=== PATIENT | male | born 1985 | race Hispanic/Latino ===

== ENCOUNTER 2018-05-22 03:32 | Emergency (ER) | payer SELFPAY ==
[2018-05-22] MEDS ORDERED: MECLIZINE HCL 12.5 MG TAB ONE (04:06)
[2018-05-22] MEDS ORDERED: NA CHLORIDE 0.9% 1,000 ML ONE (04:06)
[2018-05-22 04:36] LABS: Barbiturates NEGATIVE (NEGATIVE); Benzodiazepines NEGATIVE (NEGATIVE); Cocaine NEGATIVE (NEGATIVE); METHAMPHETAM POSITIVE (NEGATIVE); Methadone NEGATIVE (NEGATIVE); Opiates NEGATIVE (NEGATIVE); Phencyclidine NEGATIVE (NEGATIVE); THC Cannibis POSITIVE (NEGATIVE)
--- NOTE | 2018-05-22 05:29 | ER ---
Nurse's Notes [facility] Name: Rogerio Ocampo Age: 32 yrs Sex: Male : 1985 Arrival Date: 05/22/2018 Time: 03:34 Bed 13 Private MD: Diagnosis: Dizziness. Substance abuse Presentation: 05/22 03:50 Presenting complaint: Patient states: Patient reports he was feeling anxious and took ea hydroxypam at around 1 to 2 am , reports he was feeling dizzy and having tunnel vision. Pt reports he snorted a line of cocaine to help him feel better. Pt states "I still feel dizzy and I can't sleep". Transition of care: patient was not received from another setting of care. Onset of symptoms was May 22, 2018. Risk Assessment: Do you want to hurt yourself or someone else? Patient reports no desire to harm self or others. Initial Sepsis Screen: Does the patient meet any 2 criteria? No. Patient's initial sepsis screen is negative. Does the patient have a suspected source of infection? No. Patient's initial sepsis screen is negative. Care prior to arrival: None. 03:50 Method Of Arrival: Ambulatory ea 03:50 Acuity: MERLYN 4 ea Historical: - Allergies: 03:56 No Known Allergies; ea - Home Meds: 03:56 hydroxyzine pamoate 25 mg Oral cap [Active]; ea - PMHx: 03:57 Anxiety; Bipolar disorder; manic depression; ea - PSHx: 03:56 None; ea - Immunization history:: Adult Immunizations up to date. - Social history:: Smoking status: Patient/guardian denies using tobacco, Patient uses street drugs. - Ebola Screening: : No symptoms or risks identified at this time. Screenin:51 Abuse screen: Denies threats or abuse. Denies injuries from another. Nutritional aa1 screening: No deficits noted. Tuberculosis screening: No symptoms or risk factors identified. Fall Risk None identified. Assessment: 03:51 General: Appears in no apparent distress. comfortable, slender, Behavior is calm, aa1 cooperative, appropriate for age. Pain: Denies pain. Neuro: Level of Consciousness is awake, alert, obeys commands, Oriented to person, place, time, situation, Moves all extremities. Full function Gait is steady, Speech is normal, Reports dizziness, since snorting a line of cocaine and taking 2 Atarax tablets. Cardiovascular: Denies chest pain, diaphoresis, palpitations. Respiratory: Airway is patent Respiratory effort is even, unlabored, Respiratory pattern is regular, symmetrical. GI: No signs and/or symptoms were reported involving the gastrointestinal system. : No signs and/or symptoms were reported regarding the genitourinary system. EENT: No signs and/or symptoms were reported regarding the EENT system. Derm: Skin is intact, is healthy with good turgor, Skin is pink, warm \\T\\ dry. Musculoskeletal: Circulation, motion, and sensation intact. Capillary refill < 3 seconds. 05:36 Reassessment: Patient appears in no apparent distress at this time. Patient is alert, aa1 oriented x 3, equal unlabored respirations, skin warm/dry/pink. Discussed d/c \\T\\ f/u instructions with pt; denies questions or concerns at this time Patient states feeling better. Vital Signs: 03:50 BP 145 / 89; Pulse 87; Resp 18; Temp 97.8; Pulse Ox 99% on R/A; Weight 58.97 kg; Height ea 5 ft. 4 in. (162.56 cm); Pain 0/10; 04:43 BP 121 / 70; Pulse 58; Resp 18; Pulse Ox 98% ; ea 05:36 BP 112 / 68; Pulse 56; Resp 16; Pulse Ox 99% on R/A; Pain 0/10; aa1 03:50 Body Mass Index 22.31 (58.97 kg, 162.56 cm) ea ED Course: 03:34 Patient arrived in ED. am2 03:43 Andrew Joy MD is Attending Physician. pkl 03:50 Maggi Enriquez, ROSIBEL is Primary Nurse. aa1 03:50 Arm band placed on right wrist. Patient placed in an exam room, on a stretcher, on ea pulse oximetry. 03:51 Patient has correct armband on for positive identification. Bed in low position. Call aa1 light in reach. Pulse ox on. NIBP on. 03:53 Triage completed. ea 04:09 Inserted saline lock: 20 gauge in right antecubital area, using aseptic technique. ea 05:36 No provider procedures requiring assistance completed. IV discontinued, intact, aa1 bleeding controlled, No redness/swelling at site. Pressure dressing applied. Administered Medications: 04:08 Drug: Antivert 25 mg Route: PO; ea 05:36 Follow up: Response: No adverse reaction; Marked relief of symptoms aa1 04:09 Drug: NS 0.9% 1000 ml Route: IV; Rate: 1000 ml; Site: right antecubital; ea 05:36 Follow up: IV Status: Completed infusion aa1 Outcome: 05:29 Discharge ordered by . brandon 05:36 Discharged to home ambulatory. aa1 05:36 Condition: good 05:36 Discharge instructions given to patient, Instructed on discharge instructions, follow up and referral plans. Demonstrated understanding of instructions, follow-up care. 05:38 Patient left the ED. aa1 Signatures: Maggi Enriquez RN RN aa1 Andrew Joy MD MD pkl Moreno, Amanda am2 Antunez, Elena, RN RN joleen
--- NOTE | 2018-05-22 05:30 | EDPHYS ---
Physician Documentation [facility] Name: Rogerio Ocampo Age: 32 yrs Sex: Male : 1985 Arrival Date: 05/22/2018 Time: 03:34 Bed 13 Private MD: ED Physician Andrew Joy HPI: 05/22 03:58 This 32 yrs old Male presents to ER via Ambulatory with complaints of pkl Dizziness, Doesn't Feel Right. 03:58 The patient presents with lightheadedness. Onset: The symptoms/episode began/occurred pkl just prior to arrival. Patient admits to snorting a line of cocaine earlier.. Historical: - Allergies: 03:56 No Known Allergies; ea - Home Meds: 03:56 hydroxyzine pamoate 25 mg Oral cap [Active]; ea - PMHx: 03:57 Anxiety; Bipolar disorder; manic depression; ea - PSHx: 03:56 None; ea - Immunization history:: Adult Immunizations up to date. - Social history:: Smoking status: Patient/guardian denies using tobacco, Patient uses street drugs. - Ebola Screening: : No symptoms or risks identified at this time. ROS: 03:58 Eyes: Negative for injury, pain, redness, and discharge, ENT: Negative for injury, pkl pain, and discharge, Neck: Negative for injury, pain, and swelling, Cardiovascular: Negative for chest pain, palpitations, and edema, Respiratory: Negative for shortness of breath, cough, wheezing, and pleuritic chest pain, Abdomen/GI: Negative for abdominal pain, nausea, vomiting, diarrhea, and constipation, Back: Negative for injury and pain, : Negative for injury, bleeding, discharge, and swelling, MS/Extremity: Negative for injury and deformity, Skin: Negative for injury, rash, and discoloration. 03:58 Neuro: Positive for dizziness. Exam: 03:58 Head/Face: Normocephalic, atraumatic. Eyes: Pupils equal round and reactive to light, pkl extra-ocular motions intact. Lids and lashes normal. Conjunctiva and sclera are non-icteric and not injected. Cornea within normal limits. Periorbital areas with no swelling, redness, or edema. ENT: Nares patent. No nasal discharge, no septal abnormalities noted. Tympanic membranes are normal and external auditory canals are clear. Oropharynx with no redness, swelling, or masses, exudates, or evidence of obstruction, uvula midline. Mucous membranes moist. Neck: Trachea midline, no thyromegaly or masses palpated, and no cervical lymphadenopathy. Supple, full range of motion without nuchal rigidity, or vertebral point tenderness. No Meningismus. Chest/axilla: Normal chest wall appearance and motion. Nontender with no deformity. No lesions are appreciated. Cardiovascular: Regular rate and rhythm with a normal S1 and S2. No gallops, murmurs, or rubs. Normal PMI, no JVD. No pulse deficits. Respiratory: Lungs have equal breath sounds bilaterally, clear to auscultation and percussion. No rales, rhonchi or wheezes noted. No increased work of breathing, no retractions or nasal flaring. Abdomen/GI: Soft, non-tender, with normal bowel sounds. No distension or tympany. No guarding or rebound. No evidence of tenderness throughout. Back: No spinal tenderness. No costovertebral tenderness. Full range of motion. Skin: Warm, dry with normal turgor. Normal color with no rashes, no lesions, and no evidence of cellulitis. MS/ Extremity: Pulses equal, no cyanosis. Neurovascular intact. Full, normal range of motion. Neuro: Awake and alert, GCS 15, oriented to person, place, time, and situation. Cranial nerves II-XII grossly intact. Motor strength 5/5 in all extremities. Sensory grossly intact. Cerebellar exam normal. Normal gait. Vital Signs: 03:50 BP 145 / 89; Pulse 87; Resp 18; Temp 97.8; Pulse Ox 99% on R/A; Weight 58.97 kg; Height ea 5 ft. 4 in. (162.56 cm); Pain 0/10; 04:43 BP 121 / 70; Pulse 58; Resp 18; Pulse Ox 98% ; ea 05:36 BP 112 / 68; Pulse 56; Resp 16; Pulse Ox 99% on R/A; Pain 0/10; aa1 03:50 Body Mass Index 22.31 (58.97 kg, 162.56 cm) ea MDM: 03:43 Patient medically screened. pkl 05:28 Data reviewed: vital signs, nurses notes, lab test result(s). pkl 05/22 03:58 Order name: UDS pkl 05/22 03:58 Order name: Urine Drug Screen; Complete Time: 04:59 EDMS Administered Medications: 04:08 Drug: Antivert 25 mg Route: PO; ea 05:36 Follow up: Response: No adverse reaction; Marked relief of symptoms aa1 04:09 Drug: NS 0.9% 1000 ml Route: IV; Rate: 1000 ml; Site: right antecubital; ea 05:36 Follow up: IV Status: Completed infusion aa1 Disposition: 05/22/18 05:29 Discharged to Home. Impression: Dizziness. Substance abuse. - Condition is Stable. - Medication Reconciliation Form, Thank You Letter, Antibiotic Education, Prescription Opioid Use form. - Follow up: Private Physician; When: 1 - 2 days; Reason: Re-evaluation by your physician. - Problem is new. - Symptoms have improved. Signatures: Dispatcher [employer] EDMaggi Stanley RN RN aa1 Andrew Joy MD MD pkAlessandra Dominguez RN RN ea Corrections: (The following items were deleted from the chart) 05:38 05:29 05/22/2018 05:29 Discharged to Home. Impression: Dizziness. Substance abuse. aa1 Condition is Stable. Forms are Medication Reconciliation Form, Thank You Letter, Antibiotic Education, Prescription Opioid Use. Follow up: Private Physician; When: 1 - 2 days; Reason: Re-evaluation by your physician. Problem is new. Symptoms have improved. pkl
== END 2018-05-22 05:38 | disposition home or self-care (01) ==
LOC: ER 03:32
DX: R42 Dizziness and giddiness (principal); F14.10 Cocaine abuse, uncomplicated
CPT/HCPCS: 80307; 96360; 99283; J7030

== ENCOUNTER 2020-03-23 20:14 | Emergency (ER) | payer SELFPAY ==
--- OUTSIDE RECORDS SUMMARY | 2020-03-23 20:16 | XMS REPORT | Continuity of Care Document ---
:1985 Author Organization [facility] t Address [address] [place] [address] Care Team Providers Name Role Phone Unavailable Unavailable Unavailable Problems This patient has no known problems. Allergies, Adverse Reactions, Alerts This patient has no known allergies or adverse reactions. Medications This patient has no known medications. Procedures This patient has no known procedures. Results Test Description Test Time Test Comments Results Result Comments Source Valproic Acid Level 2019-04-14 08:27:31 Test Item Value Reference Range Interpretation Comme nts Valproic Acid Level (test code = Valproic Acid Level) 104.1 ug/m L(g) 50.0-100.0 H Valproic Acid [id number] 07:43:14 Test Item Value Reference Range Interpretation Comments Valproic Acid Level (test code 73.6 ug/mL(g) 50.0-100.0 = Valproic Acid Level) RPR [id number] 06:32:32 Test Item Value Reference Range Interpretation Comments RPR Qual (test code = RPR Qual) Non-Reactive Non-Reactive Reactive Control (test code = Reactive Reactive Control) Weak Reactive Control (test Weak Reactive code = Weak Reactive Control) Non-Reactive Control (test code Non-Reactive = Non-Reactive Control) Lot # (test code = Lot #) [id number] N Expiration Dt (test code = 08/16/2020 N Expiration Dt) Lipid [id number] 03:06:13 Test Item Value Reference Range Interpretation Comments Cholesterol Total 179 mg/dL 0-200 RISK OF HE ART (test code = DISEASEPublishe d by Cholesterol Total) [place] [employer] [place]nn lyte Optimal Borderl ine Increased RiskC HOL <200 200-239 >2 40TRIG <150 150-199 >2 00HDL Male >60 <40H DL Female >60 <5 0LDL <100 130-159 >1 60LDL Near optimal is 100-129 Triglycerides (test 95 mg/dL 9-200 code = Triglycerides) HDL (test code = HDL) 50 mg/dL 40-60 LDL (test code = LDL) 110 mg/dL 0-130 The eq uation being used in this calcula tion is LDL = (Chol - H DL) - (Trig / 5) VLDL (test code = 19 mg/dL 5-40 The equati on being used VLDL) in this calcula tion is VLDL = Trig / 5 Chol/HDL (test code = 3.6 ratio 0.0-5.0 Chol/HDL) LDL/HDL Ratio (test 2 N The equa tion being used code = LDL/HDL Ratio) in thi s calculation is LDL/HDL Ratio=L DL Calc/HDL Chol Thyroid Stimulating [id number] 03:06:13 Test Item Value Reference Range Interpretation Comments TSH (test code = TSH) 1.270 mIU/mL 0.270-4.200 Drugs of Abuse Urine [id number] 17:55:32 Test Item Value Reference Range Interpretation Comments Amphetamine Screen Ur POSITIVE Negative A For di agnostic (test code = Amphetamine pur poses only. Screen Ur) Positive result s should always b e assessed in conjunction wit h a patient's medic al history. Barbiturate Screen Ur Negative Negative (test code = Barbiturate Screen Ur) Benzodiazepines Ur (test Negative Negative code = Benzodiazepines Ur) Cocaine Screen Ur (test POSITIVE Negative A code = Cocaine Screen Ur) U Methadone (test code = Negative Negative U Methadone) Opiate Screen Ur (test Negative Negative code = Opiate Screen Ur) U PCP Scrn (test code = U Negative Negative PCP Scrn) U Propoxyphene (test code Negative Negative = U Propoxyphene) Cannabinoid Screen Ur POSITIVE Negative A (test code = Cannabinoid Screen Ur) Comprehensive Metabolic [id number] 17:55:22 Test Item Value Reference Range Interpretation Comments Sodium Level (test code = Sodium 138.0 mmol/L 135.0-145.0 Level) Potassium Level (test code = 4.2 mmol/L 3.5-5.1 Potassium Level) Chloride Level (test code = 99 mmol/L 98-105 Chloride Level) CO2 (test code = CO2) 27 mmol/L 22-29 Anion Gap (test code = Anion 12 mmol/L 7-16 Gap) BUN (test code = BUN) 9.50 mg/dL 6.00-20.00 Creatinine Level (test code = 0.90 mg/dL 0.70-1.20 Creatinine Level) BUN/Creat Ratio (test code = 11 N BUN/Creat Ratio) Glucose Level (test code = 91 mg/dL 70-115 Glucose Level) Calcium Level (test code = 9.3 mg/dL 8.3-10.5 Calcium Level) Alk Phos (test code = Alk Phos) 112 U/L 40-129 Bilirubin Total (test code = 0.6 mg/dL 0.1-0.9 Bilirubin Total) Albumin Level (test code = 4.9 g/dL 3.5-5.2 Albumin Level) Protein Total (test code = 7.4 g/dL 6.4-8.3 Protein Total) ALT (test code = ALT) 15 U/L 1-41 AST (test code = AST) 26 U/L 1-40 Globulin (test code = Globulin) 2.5 g/dL 2.9-3.1 L A/G Ratio (test code = A/G 2.0 ratio N Ratio) Comprehensive Metabolic [id number] 17:55:22 Test Item Value Reference Range Interpretation Comments Sodium Level (test 138.0 mmol/L 135.0-145.0 code = Sodium Level) Potassium Level 4.2 mmol/L 3.5-5.1 (test code = Potassium Level) Chloride Level (test 99 mmol/L 98-105 code = Chloride Level) CO2 (test code = 27 mmol/L 22-29 CO2) Anion Gap (test code 12 mmol/L 7-16 = Anion Gap) BUN (test code = 9.50 mg/dL 6.00-20.00 BUN) Creatinine Level 0.90 mg/dL 0.70-1.20 (test code = Creatinine Level) BUN/Creat Ratio 11 N (test code = BUN/Creat Ratio) Glucose Level (test 91 mg/dL 70-115 code = Glucose Level) Calcium Level (test 9.3 mg/dL 8.3-10.5 code = Calcium Level) Alk Phos (test code 112 U/L 40-129 = Alk Phos) Bilirubin Total 0.6 mg/dL 0.1-0.9 (test code = Bilirubin Total) Albumin Level (test 4.9 g/dL 3.5-5.2 code = Albumin Level) Protein Total (test 7.4 g/dL 6.4-8.3 code = Protein Total) ALT (test code = 15 U/L 1-41 ALT) AST (test code = 26 U/L 1-40 AST) Globulin (test code 2.5 g/dL 2.9-3.1 L = Globulin) A/G Ratio (test code 2.0 ratio N = A/G Ratio) eGFR AA (test code = >60 N eGFR (e stimated eGFR AA) mL/min/1.73 m2 Glomerular Filtration Rate ) is an estimated va lue, calculated from the patient's serum creatinine usin g the MDRD equation. It is NOT the patient 's actual GFR. The eGFR provides a more clinically usef ul measure of kidn ey disease than se rum creatinine alone.This calculation bruce es sex and race in to account, if the information is provided. If th e race is not provided, and t he patient is -Zofia n, multiply by 1.2 12. If sex is not provided, and t he patient is fema le, multiply by 0.7 42. Results for pat ients <18 years of ag e have not been validated by th e MDRD study and should be interpreted wit h caution. eGFR R esult Interpretation: eGFR > or = 60 is in the Normal RangeeGF R < 60 may mean kid carlos diseaseeGFR < 1 5 may mean kidney failure Rang es recommended by the National Kidney Foundation, http://nkdep.ni h.gov Alcohol [id number] 17:55:22 Test Item Value Reference Range Interpretation Comments Ethanol Level (test <0.00 g/dL 0.00-0.01 Intoxica isa 0.080 g/dL code = Ethanol or more Level) Ethanol Inst (test <0 N code = Ethanol Inst) Comprehensive Metabolic [id number] 17:55:22 Test Item Value Reference Range Interpretation Comments Sodium Level (test 138.0 mmol/L 135.0-145.0 code = Sodium Level) Potassium Level 4.2 mmol/L 3.5-5.1 (test code = Potassium Level) Chloride Level (test 99 mmol/L 98-105 code = Chloride Level) CO2 (test code = 27 mmol/L 22-29 CO2) Anion Gap (test code 12 mmol/L 7-16 = Anion Gap) BUN (test code = 9.50 mg/dL 6.00-20.00 BUN) Creatinine Level 0.90 mg/dL 0.70-1.20 (test code = Creatinine Level) BUN/Creat Ratio 11 N (test code = BUN/Creat Ratio) Glucose Level (test 91 mg/dL 70-115 code = Glucose Level) Calcium Level (test 9.3 mg/dL 8.3-10.5 code = Calcium Level) Alk Phos (test code 112 U/L 40-129 = Alk Phos) Bilirubin Total 0.6 mg/dL 0.1-0.9 (test code = Bilirubin Total) Albumin Level (test 4.9 g/dL 3.5-5.2 code = Albumin Level) Protein Total (test 7.4 g/dL 6.4-8.3 code = Protein Total) ALT (test code = 15 U/L 1-41 ALT) AST (test code = 26 U/L 1-40 AST) Globulin (test code 2.5 g/dL 2.9-3.1 L = Globulin) A/G Ratio (test code 2.0 ratio N = A/G Ratio) eGFR AA (test code = >60 N eGFR (e stimated eGFR AA) mL/min/1.73 m2 Glomerular Filtration Rate ) is an estimated va lue, calculated from the patient's serum creatinine usin g the MDRD equation. It is NOT the patient 's actual GFR. The eGFR provides a more clinically usef ul measure of kidn ey disease than se rum creatinine alone.This calculation bruce es sex and race in to account, if the information is provided. If th e race is not provided, and t he patient is -Zofia n, multiply by 1.2 12. If sex is not provided, and t he patient is fema le, multiply by 0.7 42. Results for pat ients <18 years of ag e have not been validated by th e MDRD study and should be interpreted wit h caution. eGFR R esult Interpretation: eGFR > or = 60 is in the Normal RangeeGF R < 60 may mean kid carlos diseaseeGFR < 1 5 may mean kidney failure Rang es recommended by the National Kidney Foundation, http://nkdep.ni h.gov eGFR Non-AA (test >60.00 N eGFR (zahira mated code = eGFR Non-AA) mL/min/1.73 m2 Glomer ular Filtration Rate ) is an estimated va lue, calculated from the patient's serum creatinine usin g the MDRD equation. It is NOT the patient 's actual GFR. The eGFR provides a more clinically usef ul measure of kidn ey disease than se rum creatinine alone.This calculation bruce es sex and race in to account, if the information is provided. If th e race is not provided, and t he patient is -Zofia n, multiply by 1.2 12. If sex is not provided, and t he patient is fema le, multiply by 0.7 42. Results for pat ients <18 years of ag e have not been validated by th e MDRD study and should be interpreted wit h caution. eGFR R esult Interpretation: eGFR > or = 60 is in the Normal RangeeGF R < 60 may mean kid carlos diseaseeGFR < 1 5 may mean kidney failure Rang es recommended by the National Kidney Foundation, http://nkdep.ni h.gov IG [id number] 17:36:05 Test Item Value Reference Range Interpretation Comments IG (test code = IG) 0.3 % 0.0-5.0 IG Abs (test code = IG Abs) 0 x10 N Complete Blood Count with [id number] 17:36:04 Test Item Value Reference Range Interpretation Comments WBC (test code = WBC) 9.1 x10 4.4-10.5 RBC (test code = RBC) 4.95 x10 4.10-5.70 Hgb (test code = Hgb) 14.8 g/dL 13.4-17.4 Hct (test code = Hct) 44.4 % 38.7-52.0 MCV (test code = MCV) 89.70 fL 80.00-100.00 MCHC (test code = 33.30 g/dL 32.00-37.50 MCHC) RDW CV (test code = 12.8 % 11.5-14.5 RDW CV) MCH (test code = MCH) 29.9 pg 27.0-32.5 Platelets (test code = 395.0 x10 140.0-440.0 Platelets) MPV (test code = MPV) 8.6 fL N Slide Review (test Auto Auto Result cr eated by code = Slide Review) GL_SJM_ SLIDE_REV_AUTO nRBC (test code = 0 N nRBC) NRBC Abs (test code = 0.00 x10 N NRBC Abs) IPF (test code = IPF) 0 % N Automated [id number] 17:36:04 Test Item Value Reference Range Interpretation Comments Neutro Auto (test code = Neutro 67.6 % 36.0-70.0 Auto) Lymph Auto (test code = Lymph Auto) 18.7 % 12.0-44.0 Adams Auto (test code = Adams Auto) 6.1 % 0.0-11.0 Eos, Auto (test code = Eos, Auto) 6.5 % 0.0-7.0 Basophil Auto (test code = Basophil 0.8 % 0.0-2.0 Auto) Neutro Absolute (test code = Neutro 6.2 x10 1.6-7.4 Absolute) Lymph Absolute (test code = Lymph 1.70 x10 .50-4.60 Absolute) Adams Absolute (test code = Adams .56 x10 .00-1.20 Absolute) Eos Absolute (test code = Eos 0.59 x10 0.00-0.74 Absolute) Baso Absolute (test code = Baso 0.07 x10 0.00-0.21 Absolute)
[2020-03-23 20:58] LABS: Absolute Lymphocytes (CBC) 1.7 K/uL (0.7-4.9); Basophils % 1.5 % (0-1.3); Lymphocytes % 28.2 % (15.3-44.8); MPV 7.1 fL (7.6-11.3); RBC Red Blood Cell Count 5.56 M/uL (4.33-5.43)
--- NOTE | 2020-03-23 20:59 | RAD REPORT ---
EXAM DESCRIPTION: RAD - Chest Single View - 03/23/2020 8:45 pm CLINICAL HISTORY: CHEST PAIN Chest pain. COMPARISON: No comparisons FINDINGS: Portable technique limits examination quality. The lungs are grossly clear. The heart is normal in size. No displaced fractures. IMPRESSION: No acute intrathoracic process suspected.
[2020-03-23 21:02] LABS: Protime INR 1.05
[2020-03-23 21:10] LABS: Barbiturates NEGATIVE (NEGATIVE); Benzodiazepines NEGATIVE (NEGATIVE); Cocaine NEGATIVE (NEGATIVE); METHAMPHETAM NEGATIVE (NEGATIVE); Methadone NEGATIVE (NEGATIVE); Opiates NEGATIVE (NEGATIVE); Phencyclidine NEGATIVE (NEGATIVE); THC Cannibis NEGATIVE (NEGATIVE)
[2020-03-23 21:19] LABS: ALT/SGPT 15 U/L (12-78); AST/SGOT 12 U/L (15-37); Albumin 4.3 g/dL (3.4-5.0); Alkaline Phosphatase 122 U/L (45-117); BUN Blood Urea Nitrogen 10 mg/dL (7-18); Bicarbonate 27 mmol/L (21-32); Bilirubin Direct < 0.1 mg/dL (0-0.2); Bilirubin Total 0.4 mg/dL (0.2-1.0); Glucose Level 100 mg/dL (74-106); NT PRO-BNP 10 pg/mL (<125); Potassium 3.8 mmol/L (3.5-5.1); Protein, Total 8.8 g/dL (6.4-8.2); Sodium Level 138 mmol/L (136-145); Troponin (Emerg Dept Use Only) < 0.02 ng/mL (0.0-0.045)
[2020-03-23 22:06] LABS: Urine Blood TRACE (NEG); Urine Glucose NEGATIVE (NEG); Urine Protein NEGATIVE (NEG); Urine Specific Gravity 1.015 (1.005-1.030); Urine pH 7.5 (5.0-7.0)
[2020-03-23] MEDS ORDERED: KETOROLAC 30 MG/ML INJ ONE (22:23)
--- NOTE | 2020-03-24 07:45 | EKG ---
Test Date: 2020-03-23 Test Time: 20:30:59 Fixed Wing Aircraft Flight Mechanic: FRANTZ MEASUREMENT RESULTS: Intervals: Rate: 61 [place]: 128 QRSD: 100 QT: 368 QTc: 370 [place]: P: 90 [place]: 128 QRS: 76 T: 59 INTERPRETIVE STATEMENTS: Normal sinus rhythm Nonspecific T wave abnormality Abnormal ECG Compared to ECG 05/19/2015 13:48:41 T-wave abnormality now present Sinus tachycardia no longer present Electronically Signed On 03-24-20 07:44:34 CDT by Chris Perez
[2020-03-24] MEDS ORDERED: ACETAMINOPHEN 325 MG TABLET ONE (15:21)
--- NOTE | 2020-03-25 11:44 | EKG ---
Test Date: 2020-03-25 Test Time: 00:57:56 Sand Plant Attendant: KLARISSA MEASUREMENT RESULTS: Intervals: Rate: 59 [place]: 128 QRSD: 98 QT: 402 QTc: 397 [place]: P: 37 [place]: 128 QRS: 83 T: 64 INTERPRETIVE STATEMENTS: Sinus bradycardia Otherwise normal ECG Compared to ECG 03/23/2020 20:30:59 Sinus rhythm no longer present T-wave abnormality no longer present Electronically Signed On 03-25-20 11:43:09 CDT by Chris Perez
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
[2020-03-25 13:11] VITALS: BP 128/91; TEMP 98.1; O2SAT 100
== END 2020-03-25 12:42 ==
LOC: ER 20:14
DX: R45.851 Suicidal ideations (principal); F33.9 Major depressive disorder, recurrent, unspecified; F17.210 Nicotine dependence, cigarettes, uncomplicated
CPT/HCPCS: 36415; 71045; 80048; 80076; 80307; 80320; 80329; 81003; 83735; 83880; 84484; 85025; 85610; 93005; 96374; 99285

== ENCOUNTER 2020-05-01 13:13 | Emergency (ER) | payer SELFPAY ==
[2020-05-01] MEDS ORDERED: DIAZEPAM 2 MG TABLET ONE (13:43)
[2020-05-01] MEDS ORDERED: KETOROLAC 30 MG/ML INJ ONE (13:44)
--- OUTSIDE RECORDS SUMMARY | 2020-05-01 14:06 | XMS REPORT | Continuity of Care Document ---
:1985 Author Organization [facility] t Address [address] [place] [address] Care Team Providers Name Role Phone Unavailable [...] 104.1 ug/m L(g) 50.0-100.0 H Valproic Acid [id number] 07:43:14 Test Item Value Reference Range Interpretation Comments Valproic Acid Level (test code 73.6 ug/mL(g) 50.0-100.0 = Valproic Acid Level) RPR [id number] 06:32:32 Test Item Value Reference Range Interpretation Comments RPR Qual (test code = RPR Qual) Non-Reactive Non-Reactive Reactive Control (test code = Reactive Reactive Control) Weak Reactive Control (test Weak Reactive code = Weak Reactive Control) Non-Reactive Control (test code Non-Reactive = Non-Reactive Control) Lot # (test code = Lot #) [id number] N Expiration Dt (test code = 08/16/2020 N Expiration Dt) Lipid [id number] 03:06:13 Test Item Value Reference Range Interpretation Comments Cholesterol Total 179 mg/dL 0-200 RISK OF HE ART (test code = DISEASEPublishe d by Cholesterol Total) [place] [employer] [place] lyte Optimal Borderl ine Increased RiskC HOL [...] LDL/HDL Ratio=L DL Calc/HDL Chol Thyroid Stimulating [id number] 03:06:13 Test Item Value Reference Range Interpretation Comments TSH (test code = TSH) 1.270 mIU/mL 0.270-4.200 Drugs of Abuse Urine [id number] 17:55:32 Test Item Value Reference Range Interpretation [...] code = Cannabinoid Screen Ur) Comprehensive Metabolic [id number] 17:55:22 Test Item Value Reference Range Interpretation [...] A/G 2.0 ratio N Ratio) Comprehensive Metabolic [id number] 17:55:22 Test Item Value Reference Range Interpretation [...] the National Kidney Foundation, http://nkdep.ni h.gov Alcohol [id number] 17:55:22 Test Item Value Reference Range Interpretation Comments Ethanol Level (test <0.00 g/dL 0.00-0.01 Intoxica isa 0.080 g/dL code = Ethanol or more Level) Ethanol Inst (test <0 N code = Ethanol Inst) Comprehensive Metabolic [id number] 17:55:22 Test Item Value Reference Range Interpretation [...] the National Kidney Foundation, http://nkdep.ni h.gov IG [id number] 17:36:05 Test Item Value Reference Range Interpretation Comments IG (test code = IG) 0.3 % 0.0-5.0 IG Abs (test code = IG Abs) 0 x10 N Complete Blood Count with [id number] 17:36:04 Test Item Value Reference Range Interpretation [...] code = IPF) 0 % N Automated [id number] 17:36:04 Test Item Value Reference Range Interpretation Comments Neutro Auto (test code = Neutro 67.6 % 36.0-70.0 Auto) Lymph Auto (test code = Lymph Auto) 18.7 % 12.0-44.0 Furnas Auto (test code = Furnas Auto) 6.1 % 0.0-11.0 Eos, Auto (test code = Eos, Auto) 6.5 % 0.0-7.0 Basophil Auto (test code = Basophil 0.8 % 0.0-2.0 Auto) Neutro Absolute (test code = Neutro 6.2 x10 1.6-7.4 Absolute) Lymph Absolute (test code = Lymph 1.70 x10 .50-4.60 Absolute) Furnas Absolute (test code = Furnas .56 x10 .00-1.20 Absolute) Eos Absolute (test code = Eos 0.59 x10 0.00-0.74 Absolute) Baso Absolute (test code = Baso 0.07 x10 0.00-0.21 Absolute)
--- NOTE | 2020-05-01 15:06 | RAD REPORT ---
[facility] DES[facility] 2:36 pm CLINICAL HISTORY: Chest pain COMPARISON: March 2020 FINDINGS: Left lateral costophrenic sulcus is not included in the field of view and is not evaluated Lungs are hyperaerated The lungs appear clear of acute infiltrate. The heart is normal size IMPRESSION: No acute abnormalities displayed
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
[2020-05-01 17:17] VITALS: O2SAT 100
[2020-05-01 17:19] VITALS: BP 131/82; TEMP 99
== END 2020-05-01 15:22 | disposition home or self-care (01) ==
LOC: ER 13:13
DX: R09.1 Pleurisy (principal)
CPT/HCPCS: 71045; 96372; 99284

== ENCOUNTER 2020-05-05 01:18 | Emergency (ER) | payer SELFPAY ==
--- OUTSIDE RECORDS SUMMARY | 2020-05-05 01:21 | XMS REPORT | Continuity of Care Document ---
:1985 Author Organization [facility] t Address [address] [place] [address] Care Team Providers Name Role Phone Unavailable [...] 104.1 ug/m L(g) 50.0-100.0 H Valproic Acid [id number] 07:43:14 Test Item Value Reference Range Interpretation Comments Valproic Acid Level (test code 73.6 ug/mL(g) 50.0-100.0 = Valproic Acid Level) RPR [id number] 06:32:32 Test Item Value Reference Range Interpretation Comments RPR Qual (test code = RPR Qual) Non-Reactive Non-Reactive Reactive Control (test code = Reactive Reactive Control) Weak Reactive Control (test Weak Reactive code = Weak Reactive Control) Non-Reactive Control (test code Non-Reactive = Non-Reactive Control) Lot # (test code = Lot #) [id number] N Expiration Dt (test code = 08/16/2020 N Expiration Dt) Lipid [id number] 03:06:13 Test Item Value Reference Range Interpretation Comments Cholesterol Total 179 mg/dL 0-200 RISK OF HE ART (test code = DISEASEPublishe d by Cholesterol Total) [place] [employer] Brooklynn lyte Optimal Borderl ine [...] LDL/HDL Ratio=L DL Calc/HDL Chol Thyroid Stimulating [id number] 03:06:13 Test Item Value Reference Range Interpretation Comments TSH (test code = TSH) 1.270 mIU/mL 0.270-4.200 Drugs of Abuse Urine [id number] 17:55:32 Test Item Value Reference Range Interpretation [...] code = Cannabinoid Screen Ur) Comprehensive Metabolic [id number] 17:55:22 Test Item Value Reference Range Interpretation [...] A/G 2.0 ratio N Ratio) Comprehensive Metabolic [id number] 17:55:22 Test Item Value Reference Range Interpretation [...] the National Kidney Foundation, http://nkdep.ni h.gov Alcohol [id number] 17:55:22 Test Item Value Reference Range Interpretation Comments Ethanol Level (test <0.00 g/dL 0.00-0.01 Intoxica isa 0.080 g/dL code = Ethanol or more Level) Ethanol Inst (test <0 N code = Ethanol Inst) Comprehensive Metabolic [id number] 17:55:22 Test Item Value Reference Range Interpretation [...] the National Kidney Foundation, http://nkdep.ni h.gov IG [id number] 17:36:05 Test Item Value Reference Range Interpretation Comments IG (test code = IG) 0.3 % 0.0-5.0 IG Abs (test code = IG Abs) 0 x10 N Complete Blood Count with [id number] 17:36:04 Test Item Value Reference Range Interpretation [...] code = IPF) 0 % N Automated [id number] 17:36:04 Test Item Value Reference Range Interpretation Comments Neutro Auto (test code = Neutro 67.6 % 36.0-70.0 Auto) Lymph Auto (test code = Lymph Auto) 18.7 % 12.0-44.0 [place] Auto (test code = [place] Auto) 6.1 % 0.0-11.0 Eos, Auto (test code = Eos, Auto) 6.5 % 0.0-7.0 Basophil Auto (test code = Basophil 0.8 % 0.0-2.0 Auto) Neutro Absolute (test code = Neutro 6.2 x10 1.6-7.4 Absolute) Lymph Absolute (test code = Lymph 1.70 x10 .50-4.60 Absolute) [place] Absolute (test code = [place] .56 x10 .00-1.20 Absolute) Eos Absolute (test code = Eos 0.59 x10 0.00-0.74 Absolute) Baso Absolute (test code = Baso 0.07 x10 0.00-0.21 Absolute)
[2020-05-05 02:16] LABS: Absolute Lymphocytes (CBC) 2.3 K/uL (0.7-4.9); Hematocrit 37.4 % (39.6-49.0); Lymphocytes % 32.5 % (15.3-44.8); MPV 7.3 fL (7.6-11.3); Protime INR 1.03; RBC Red Blood Cell Count 4.39 M/uL (4.33-5.43)
[2020-05-05 02:27] LABS: ALT/SGPT 23 U/L (12-78); AST/SGOT 18 U/L (15-37); Albumin 3.7 g/dL (3.4-5.0); Alkaline Phosphatase 103 U/L (45-117); BUN Blood Urea Nitrogen 20 mg/dL (7-18); Bicarbonate 27 mmol/L (21-32); Bilirubin Direct 0.1 mg/dL (0-0.2); Bilirubin Total 0.3 mg/dL (0.2-1.0); Glucose Level 100 mg/dL (74-106); Magnesium 2.4 mg/dL (1.8-2.4); NT PRO-BNP 39 pg/mL (<125); Potassium 3.8 mmol/L (3.5-5.1); Protein, Total 7.3 g/dL (6.4-8.2); Sodium Level 144 mmol/L (136-145); Troponin (Emerg Dept Use Only) < 0.02 ng/mL (0.0-0.045)
[2020-05-05 02:52] LABS: Blood Morphology Comment NOT SEEN (NOT SEEN); Platelet Estimate ADEQ
[2020-05-05] MEDS ORDERED: KETOROLAC 30 MG/ML INJ ONE (03:35)
[2020-05-05 04:34] LABS: Barbiturates NEGATIVE (NEGATIVE); Benzodiazepines NEGATIVE (NEGATIVE); Cocaine NEGATIVE (NEGATIVE); METHAMPHETAM POSITIVE (NEGATIVE); Methadone NEGATIVE (NEGATIVE); Opiates NEGATIVE (NEGATIVE); Phencyclidine NEGATIVE (NEGATIVE); THC Cannibis NEGATIVE (NEGATIVE)
[2020-05-05 05:18] LABS: Creatine Phosphokinase 309 U/L (39-308)
--- NOTE | 2020-05-05 05:32 | EDPHYS ---
Physician Documentation [facility] Name: Rogerio Ocampo Age: 34 yrs Sex: Male : 1985 Arrival Date: 05/05/2020 Time: : Bed 8 Private MD: ED Physician Calin Harris HPI: 05/05 01:38 This 34 yrs old Male presents to ER via EMS with complaints of Chest pain.. mh7 01:38 The patient or guardian reports chest pain that is located primarily in the anterior mh7 chest wall, left. The pain does not radiate. Associated signs and symptoms: Pertinent positives: shortness of breath, Anxiety, Pertinent negatives: abdominal pain, cough, diaphoresis, dizziness, headache, lower extremity pain, lower extremity swelling, lightheadedness, nausea, near syncope, palpitations, recent travel, syncope, vomiting. The chest pain is described as sharp. Duration: The patient or guardian reports a single episode, that is still ongoing, but improving. Modifying factors: The symptoms are alleviated by nothing. the symptoms are aggravated by movement, palpation of area. Severity of pain: At its worst the pain was moderate today, in the emergency department the pain has improved markedly. The patient has experienced similar episodes in the past, multiple times. Historical: - Allergies: :23 No Known Allergies; - Home Meds: :23 None [Active]; - PMHx: :23 Anxiety; Bipolar disorder; MANIC DEPRESSION; - Immunization history:: Adult Immunizations not up to date. - Social history:: Smoking status: Patient/guardian denies using. ROS: 01:38 Constitutional: Negative for fever, chills, and weight loss, Eyes: Negative for injury, mh7 pain, redness, and discharge, ENT: Negative for injury, pain, and discharge, Neck: Negative for injury, pain, and swelling, Abdomen/GI: Negative for abdominal pain, nausea, vomiting, diarrhea, and constipation, Back: Negative for injury and pain, : Negative for injury, bleeding, discharge, and swelling, MS/Extremity: Negative for injury and deformity, Skin: Negative for injury, rash, and discoloration, Neuro: Negative for headache, weakness, numbness, tingling, and seizure, Psych: Negative for depression, anxiety, suicide ideation, homicidal ideation, and hallucinations, Allergy/Immunology: Negative for hives, rash, and allergies, Endocrine: Negative for neck swelling, polydipsia, polyuria, polyphagia, and marked weight changes, Hematologic/Lymphatic: Negative for swollen nodes, abnormal bleeding, and unusual bruising. Exam: 01:38 Constitutional: This is a well developed, well nourished patient who is awake, alert, mh7 and in no acute distress. Head/Face: Normocephalic, atraumatic. Neck: Trachea midline, no thyromegaly or masses palpated, and no cervical lymphadenopathy. Supple, full range of motion without nuchal rigidity, or vertebral point tenderness. No Meningismus. 01:38 Cardiovascular: Regular rate and rhythm with a normal S1 and S2. No gallops, murmurs, or rubs. Normal PMI, no JVD. No pulse deficits. Respiratory: Lungs have equal breath sounds bilaterally, clear to auscultation and percussion. No rales, rhonchi or wheezes noted. No increased work of breathing, no retractions or nasal flaring. Abdomen/GI: Soft, non-tender, with normal bowel sounds. No distension or tympany. No guarding or rebound. No evidence of tenderness throughout. Back: No spinal tenderness. No costovertebral tenderness. Full range of motion. Skin: Warm, dry with normal turgor. Normal color with no rashes, no lesions, and no evidence of cellulitis. MS/ Extremity: Pulses equal, no cyanosis. Neurovascular intact. Full, normal range of motion. Neuro: Awake and alert, GCS 15, oriented to person, place, time, and situation. Cranial nerves II-XII grossly intact. Motor strength 5/5 in all extremities. Sensory grossly intact. Cerebellar exam normal. Normal gait. Psych: Awake, alert, with orientation to person, place and time. Behavior, mood, and affect are within normal limits. 01:38 Chest/axilla: Inspection: healed left surgical scar, Palpation: tenderness, that is moderate, that totally reproduces the patient's complaints, Axilla: are normal, Lymph nodes: lymphadenopathy is not appreciated. 03:51 ECG was reviewed by the Attending Physician. [facility] Vital Signs: 01:21 BP 128 / 89; Pulse 83; Resp 18; Temp 98.2; Pulse Ox 100% ; Weight 57.61 kg; Height 5 wh ft. 4 in. (162.56 cm); Pain 7/10; 03:12 BP 125 / 88; Pulse 53; Resp 16; Pulse Ox 100% on R/A; rv 05:00 BP 117 / 77; Pulse 60; Resp 16; Pulse Ox 100% on R/A; rv 06:07 BP 126 / 77; Pulse 53; Resp 15; Pulse Ox 100% on R/A; rv 01:21 Body Mass Index 21.80 (57.61 kg, 162.56 cm) MDM: 01:24 Patient medically screened. [facility] 05:29 Differential diagnosis: acute myocardial infarction, acute pericarditis, anxiety, mh7 coronary artery disease chest wall pain, costochondritis, pericarditis, pneumonia, pneumothorax. HEART Score: History: Slightly Suspicious (0), ECG: Normal (0), Age: < or = 45 years (0), Risk Factors: No Risk Factors Known (0), Troponin: < or = 1 x Normal Limit (0), Total Score = 0. Data reviewed: vital signs, nurses notes, EMS record, old medical records, lab test result(s), cardiac enzymes, CBC, electrolytes, urine drug screen, EKG, radiologic studies, plain films. Data interpreted: Pulse oximetry: on room air is 100 %. Interpretation: normal. Counseling: I had a detailed discussion with the patient and/or guardian regarding: the historical points, exam findings, and any diagnostic results supporting the discharge/admit diagnosis, lab results, radiology results, the need for outpatient follow up, to return to the emergency department if symptoms worsen or persist or if there are any questions or concerns that arise at home. Response to treatment: the patient's symptoms have resolved after treatment, the patient's blood pressure is in an acceptable range, mental status has returned to baseline, the patient no longer shows bradycardia, the patient is not short of breath, the patient is not tachycardic, the patient's pain is gone, the patient's temperature has normalized. 05/05 01: Order name: Basic Metabolic Panel; Complete Time: 05/05 01: Order name: CBC with Diff; Complete Time: 03:06 wh 05/05 01:28 Order name: LFT's; Complete Time: 05/05 01: Order name: Magnesium; Complete Time: 05/05 01:28 Order name: NT PRO-BNP; Complete Time: : 05/05 01:28 Order name: PT-INR; Complete Time: 03: 05/05 01:28 Order name: Troponin (emerg Dept Use Only); Complete Time: 05: 05/05 01:28 Order name: XRAY Chest (1 view) 05/05 01:28 Order name: EKG; Complete Time: : 05/05 01:44 Order name: UDS; Complete Time: 05:16 mh7 05/05 02:24 Order name: Manual Differential; Complete Time: 03: EDMS 05/05 05:01 Order name: Creatine Phosphokinase; Complete Time: : EDMS 05/05 01:28 Order name: Cardiac monitoring; Complete Time: 05/05 01:28 Order name: EKG - Nurse/Tech; Complete Time: 05/05 01:28 Order name: IV Saline Lock; Complete Time: 05/05 01:28 Order name: Labs collected and sent; Complete Time: 05/05 01:28 Order name: O2 Per Protocol; Complete Time: 05/05 01:28 Order name: O2 Sat Monitoring; Complete Time: EC:51 Rate is 77 beats/min. Rhythm is regular, Normal Sinus Rhythm. QRS [place] is Normal. [place] mh7 interval is normal. QRS interval is normal. QT interval is normal. No Q waves. T waves are Normal. No ST changes noted. Clinical impression: Normal ECG and LVH. Administered Medications: 03:29 Drug: TORadol 30 mg Route: IVP; Site: left antecubital; 06:10 Follow up: Response: No adverse reaction; Pain is decreased Disposition: 05/05/20 05:32 Discharged to Home. Impression: Chest Pain, Methamphetamine Abuse. - Condition is Stable. - Discharge Instructions: Nonspecific Chest Pain, [id number], Stimulant Use Disorder-Methamphetamines. - Medication Reconciliation Form, Thank You Letter, Antibiotic Education, Prescription Opioid Use form. - Follow up: Private Physician; When: 1 - 2 days; Reason: Worsening of condition, Recheck today's complaints, Continuance of care, Re-evaluation by your physician. - Problem is an acute exacerbation. - Symptoms have improved. Signatures: Dispatcher [employer] [facility] Darnell Hutchinson Calin Harris MD MD mh7 Corrections: (The following items were deleted from the chart) 05:00 04:54 CREATINE PHOSPHOKINASE+C.LAB.BRZ ordered. [facility] 06:32 05:32 05/05/2020 05:32 Discharged to Home. Impression: Chest Pain; Methamphetamine wh Abuse. Condition is Stable. Forms are Medication Reconciliation Form, Thank You Letter, Antibiotic Education, Prescription Opioid Use. Follow up: Private Physician; When: 1 - 2 days; Reason: Worsening of condition, Recheck today's complaints, Continuance of care, Re-evaluation by your physician. Problem is an acute exacerbation. Symptoms have improved. mh7
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
[2020-05-05 06:37] VITALS: TEMP 98.2; O2SAT 100
[2020-05-05 06:41] VITALS: BP 126/77
[2020-05-05] MEDS ORDERED: LORAZEPAM 1 MG TABLET ONE (08:05)
[2020-05-05] MEDS ORDERED: DIVALPROEX DR 250 MG TAB PO ONE (08:05)
--- NOTE | 2020-05-05 08:16 | RAD REPORT ---
EXAM DESCRIPTION: [facility] Single View05/05/2020 2:10 am CLINICAL HISTORY: Chest pain COMPARISON: May 01 FINDINGS: Inferior aspects of the lateral costophrenic sulci bilaterally are not included in the fie ld of view and not evaluated The visualized lungs appear clear of acute infiltrate. The heart is normal size IMPRESSION: No acute abnormalities displayed
== END 2020-05-05 06:32 | disposition home or self-care (01) ==
LOC: ER 01:18
DX: R07.9 Chest pain, unspecified (principal); F15.10 Other stimulant abuse, uncomplicated
CPT/HCPCS: 36415; 71045; 80048; 80076; 80307; 82550; 83735; 83880; 84484; 85025; 85610; 93005; 96374; 99285

== ENCOUNTER 2020-05-05 07:27 | Emergency (ER) | payer SELFPAY ==
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
--- OUTSIDE RECORDS SUMMARY | 2020-05-05 08:12 | XMS REPORT | Continuity of Care Document ---
:1985 Author Organization [facility] t Address [address] [place] [address] Care Team Providers Name Role Phone Unavailable [...] 104.1 ug/m L(g) 50.0-100.0 H Valproic Acid [id number] 07:43:14 Test Item Value Reference Range Interpretation Comments Valproic Acid Level (test code 73.6 ug/mL(g) 50.0-100.0 = Valproic Acid Level) RPR [id number] 06:32:32 Test Item Value Reference Range Interpretation Comments RPR Qual (test code = RPR Qual) Non-Reactive Non-Reactive Reactive Control (test code = Reactive Reactive Control) Weak Reactive Control (test Weak Reactive code = Weak Reactive Control) Non-Reactive Control (test code Non-Reactive = Non-Reactive Control) Lot # (test code = Lot #) [id number] N Expiration Dt (test code = 08/16/2020 N Expiration Dt) Lipid [id number] 03:06:13 Test Item Value Reference Range Interpretation Comments Cholesterol Total 179 mg/dL 0-200 RISK OF HE ART (test code = DISEASEPublishe d by Cholesterol Total) [employer] Brooklynn lyte Optimal Borderl ine [...] LDL/HDL Ratio=L DL Calc/HDL Chol Thyroid Stimulating [id number] 03:06:13 Test Item Value Reference Range Interpretation Comments TSH (test code = TSH) 1.270 mIU/mL 0.270-4.200 Drugs of Abuse Urine [id number] 17:55:32 Test Item Value Reference Range Interpretation [...] code = Cannabinoid Screen Ur) Comprehensive Metabolic [id number] 17:55:22 Test Item Value Reference Range Interpretation [...] A/G 2.0 ratio N Ratio) Comprehensive Metabolic [id number] 17:55:22 Test Item Value Reference Range Interpretation [...] the National Kidney Foundation, http://nkdep.ni h.gov Alcohol [id number] 17:55:22 Test Item Value Reference Range Interpretation Comments Ethanol Level (test <0.00 g/dL 0.00-0.01 Intoxica isa 0.080 g/dL code = Ethanol or more Level) Ethanol Inst (test <0 N code = Ethanol Inst) Comprehensive Metabolic [id number] 17:55:22 Test Item Value Reference Range Interpretation [...] the National Kidney Foundation, http://nkdep.ni h.gov IG [id number] 17:36:05 Test Item Value Reference Range Interpretation Comments IG (test code = IG) 0.3 % 0.0-5.0 IG Abs (test code = IG Abs) 0 x10 N Complete Blood Count with [id number] 17:36:04 Test Item Value Reference Range Interpretation [...] code = IPF) 0 % N Automated [id number] 17:36:04 Test Item Value Reference Range Interpretation Comments Neutro Auto (test code = Neutro 67.6 % 36.0-70.0 Auto) Lymph Auto (test code = Lymph Auto) 18.7 % 12.0-44.0 Anson Auto (test code = Anson Auto) 6.1 % 0.0-11.0 Eos, Auto (test code = Eos, Auto) 6.5 % 0.0-7.0 Basophil Auto (test code = Basophil 0.8 % 0.0-2.0 Auto) Neutro Absolute (test code = Neutro 6.2 x10 1.6-7.4 Absolute) Lymph Absolute (test code = Lymph 1.70 x10 .50-4.60 Absolute) Anson Absolute (test code = Anson .56 x10 .00-1.20 Absolute) Eos Absolute (test code = Eos 0.59 x10 0.00-0.74 Absolute) Baso Absolute (test code = Baso 0.07 x10 0.00-0.21 Absolute)
[2020-05-05 08:21] VITALS: TEMP 97.8
[2020-05-05 08:22] VITALS: BP 129/80; O2SAT 100
== END 2020-05-05 08:15 | disposition home or self-care (01) ==
LOC: ER 07:27
DX: F31.9 Bipolar disorder, unspecified (principal); F43.10 Post-traumatic stress disorder, unspecified; T50.906A Underdosing of unspecified drugs, medicaments and biological substances, initial encounter; Z91.138 Patient's unintentional underdosing of medication regimen for other reason; Y92.9 Unspecified place or not applicable
CPT/HCPCS: 99283

== ENCOUNTER 2020-07-02 14:24 | Emergency (ER) | payer SELFPAY ==
--- OUTSIDE RECORDS SUMMARY | 2020-07-02 14:27 | XMS REPORT | Continuity of Care Document ---
:1985 Author Organization [facility] t Address [address] [place] [address] Care Team Providers Name Role Phone Unavailable [...] 104.1 ug/m L(g) 50.0-100.0 H Valproic Acid [id number] 07:43:14 Test Item Value Reference Range Interpretation Comments Valproic Acid Level (test code 73.6 ug/mL(g) 50.0-100.0 = Valproic Acid Level) RPR [id number] 06:32:32 Test Item Value Reference Range Interpretation Comments RPR Qual (test code = RPR Qual) Non-Reactive Non-Reactive Reactive Control (test code = Reactive Reactive Control) Weak Reactive Control (test Weak Reactive code = Weak Reactive Control) Non-Reactive Control (test code Non-Reactive = Non-Reactive Control) Lot # (test code = Lot #) [id number] N Expiration Dt (test code = 08/16/2020 N Expiration Dt) Lipid [id number] 03:06:13 Test Item Value Reference Range Interpretation Comments Cholesterol Total 179 mg/dL 0-200 RISK OF HE ART (test code = DISEASEPublishe d by Cholesterol Total) [employer] [employer] Brooklynn lyte Optimal Borderl ine [...] LDL/HDL Ratio=L DL Calc/HDL Chol Thyroid Stimulating [id number] 03:06:13 Test Item Value Reference Range Interpretation Comments TSH (test code = TSH) 1.270 mIU/mL 0.270-4.200 Drugs of Abuse Urine [id number] 17:55:32 Test Item Value Reference Range Interpretation [...] code = Cannabinoid Screen Ur) Comprehensive Metabolic [id number] 17:55:22 Test Item Value Reference Range Interpretation [...] A/G 2.0 ratio N Ratio) Comprehensive Metabolic [id number] 17:55:22 Test Item Value Reference Range Interpretation [...] the National Kidney Foundation, http://nkdep.ni h.gov Alcohol [id number] 17:55:22 Test Item Value Reference Range Interpretation Comments Ethanol Level (test <0.00 g/dL 0.00-0.01 Intoxica isa 0.080 g/dL code = Ethanol or more Level) Ethanol Inst (test <0 N code = Ethanol Inst) Comprehensive Metabolic [id number] 17:55:22 Test Item Value Reference Range Interpretation [...] the National Kidney Foundation, http://nkdep.ni h.gov IG [id number] 17:36:05 Test Item Value Reference Range Interpretation Comments IG (test code = IG) 0.3 % 0.0-5.0 IG Abs (test code = IG Abs) 0 x10 N Complete Blood Count with [id number] 17:36:04 Test Item Value Reference Range Interpretation [...] code = IPF) 0 % N Automated [id number] 17:36:04 Test Item Value Reference Range Interpretation Comments Neutro Auto (test code = Neutro 67.6 % 36.0-70.0 Auto) Lymph Auto (test code = Lymph Auto) 18.7 % 12.0-44.0 Stutsman Auto (test code = Stutsman Auto) 6.1 % 0.0-11.0 Eos, Auto (test code = Eos, Auto) 6.5 % 0.0-7.0 Basophil Auto (test code = Basophil 0.8 % 0.0-2.0 Auto) Neutro Absolute (test code = Neutro 6.2 x10 1.6-7.4 Absolute) Lymph Absolute (test code = Lymph 1.70 x10 .50-4.60 Absolute) Stutsman Absolute (test code = Stutsman .56 x10 .00-1.20 Absolute) Eos Absolute (test code = Eos 0.59 x10 0.00-0.74 Absolute) Baso Absolute (test code = Baso 0.07 x10 0.00-0.21 Absolute)
[2020-07-02] MEDS ORDERED: NA CHLORIDE 0.9% 1,000 ML ONE (15:04)
[2020-07-02] MEDS ORDERED: ACETAMINOPHEN 500 MG TAB ONE (15:04)
[2020-07-02] MEDS ORDERED: ONDANSETRON 4 MG/2 ML VIAL ONE (15:04)
--- NOTE | 2020-07-02 15:04 | RAD REPORT ---
EXAM DESCRIPTION: [facility] Single View07/02/2020 2:57 pm CLINICAL HISTORY: cough COMPARISON: April 2020 FINDINGS: The lungs appear clear of acute infiltrate. The heart is normal size IMPRESSION: No acute abnormalities displayed
[2020-07-02 15:06] LABS: Absolute Lymphocytes (CBC) 1.2 K/uL (0.7-4.9); Basophils % 0.6 % (0-1.3); Hematocrit 38.5 % (39.6-49.0); Lymphocytes % 8.9 % (15.3-44.8); MPV 7.4 fL (7.6-11.3); RBC Red Blood Cell Count 4.49 M/uL (4.33-5.43)
[2020-07-02 15:20] LABS: ALT/SGPT 15 U/L (12-78); AST/SGOT 10 U/L (15-37); Albumin 3.4 g/dL (3.4-5.0); Alkaline Phosphatase 116 U/L (45-117); BUN Blood Urea Nitrogen 10 mg/dL (7-18); Bicarbonate 27 mmol/L (21-32); Bilirubin Direct < 0.1 mg/dL (0-0.2); Bilirubin Total 0.2 mg/dL (0.2-1.0); Glucose Level 115 mg/dL (74-106); Lipase 50 U/L (73-393); Potassium 3.6 mmol/L (3.5-5.1); Protein, Total 6.9 g/dL (6.4-8.2); Sodium Level 141 mmol/L (136-145)
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
[2020-07-02 16:30] VITALS: BP 118/60; TEMP 98.8; O2SAT 98
== END 2020-07-02 16:20 | disposition home or self-care (01) ==
LOC: ER 14:24
DX: K52.9 Noninfective gastroenteritis and colitis, unspecified (principal); Z20.828 Contact with and (suspected) exposure to other viral communicable diseases; F31.9 Bipolar disorder, unspecified; F17.210 Nicotine dependence, cigarettes, uncomplicated
CPT/HCPCS: 36415; 71045; 80048; 80076; 83690; 85025; 87804; 96361; 96374; 99285; J2405; J7030; U0002

== ENCOUNTER 2020-07-14 01:42 | Emergency (ER) | payer SELFPAY ==
--- OUTSIDE RECORDS SUMMARY | 2020-07-14 01:44 | XMS REPORT | Continuity of Care Document ---
:[address] [facility] t Address [address] [place] [address] Care Team Providers Name Role Phone Unavailable [...] 104.1 ug/m L(g) 50.0-100.0 H Valproic Acid [id number] 07:43:14 Test Item Value Reference Range Interpretation Comments Valproic Acid Level (test code 73.6 ug/mL(g) 50.0-100.0 = Valproic Acid Level) RPR [id number] 06:32:32 Test Item Value Reference Range Interpretation Comments RPR Qual (test code = RPR Qual) Non-Reactive Non-Reactive Reactive Control (test code = Reactive Reactive Control) Weak Reactive Control (test Weak Reactive code = Weak Reactive Control) Non-Reactive Control (test code Non-Reactive = Non-Reactive Control) Lot # (test code = Lot #) [id number] N Expiration Dt (test code = 08/16/2020 N Expiration Dt) Lipid [id number] 03:06:13 Test Item Value Reference Range Interpretation Comments Cholesterol Total 179 mg/dL 0-200 RISK OF HE ART (test code = DISEASEPublishe d by Cholesterol Total) [place] Brooklynn lyte Optimal Borderl ine [...] LDL/HDL Ratio=L DL Calc/HDL Chol Thyroid Stimulating [id number] 03:06:13 Test Item Value Reference Range Interpretation Comments TSH (test code = TSH) 1.270 mIU/mL 0.270-4.200 Drugs of Abuse Urine [id number] 17:55:32 Test Item Value Reference Range Interpretation [...] code = Cannabinoid Screen Ur) Comprehensive Metabolic [id number] 17:55:22 Test Item Value Reference Range Interpretation [...] A/G 2.0 ratio N Ratio) Comprehensive Metabolic [id number] 17:55:22 Test Item Value Reference Range Interpretation [...] the National Kidney Foundation, http://nkdep.ni h.gov Alcohol [id number] 17:55:22 Test Item Value Reference Range Interpretation Comments Ethanol Level (test <0.00 g/dL 0.00-0.01 Intoxica isa 0.080 g/dL code = Ethanol or more Level) Ethanol Inst (test <0 N code = Ethanol Inst) Comprehensive Metabolic [id number] 17:55:22 Test Item Value Reference Range Interpretation [...] the National Kidney Foundation, http://nkdep.ni h.gov IG [id number] 17:36:05 Test Item Value Reference Range Interpretation Comments IG (test code = IG) 0.3 % 0.0-5.0 IG Abs (test code = IG Abs) 0 x10 N Complete Blood Count with [id number] 17:36:04 Test Item Value Reference Range Interpretation [...] code = IPF) 0 % N Automated [id number] 17:36:04 Test Item Value Reference Range Interpretation Comments Neutro Auto (test code = Neutro 67.6 % 36.0-70.0 Auto) Lymph Auto (test code = Lymph Auto) 18.7 % 12.0-44.0 [place] Auto (test code = [place] Auto) 6.1 % 0.0-11.0 Eos, Auto (test code = Eos, Auto) 6.5 % 0.0-7.0 Basophil Auto (test code = Basophil 0.8 % 0.0-2.0 Auto) Neutro Absolute (test code = Neutro 6.2 x10 1.6-7.4 Absolute) Lymph Absolute (test code = Lymph 1.70 x10 .50-4.60 Absolute) [place] Absolute (test code = [place] .56 x10 .00-1.20 Absolute) Eos Absolute (test code = Eos 0.59 x10 0.00-0.74 Absolute) Baso Absolute (test code = Baso 0.07 x10 0.00-0.21 Absolute)
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
[2020-07-14 04:42] VITALS: BP 106/71; TEMP 98; O2SAT 99
== END 2020-07-14 03:56 | disposition home or self-care (01) ==
LOC: ER 01:42
DX: F31.9 Bipolar disorder, unspecified (principal); F43.10 Post-traumatic stress disorder, unspecified
CPT/HCPCS: 93005; 99284